=== PATIENT | female | born 1995 | race Caucasian/White ===

== ENCOUNTER 2017-05-23 08:39 | Emergency (ER) | payer BC ==
[2017-05-23] MEDS ORDERED: ACETAMINOPHEN 325 MG TABLET PO ONE (09:00)
[2017-05-23] MEDS ORDERED: fentaNYL PF 100 MCG/2 ML VIAL ONE (09:20)
[2017-05-23] MEDS: fentaNYL PF 100 MCG/2 ML VIAL IV PRN ×3 (09:22→10:10)
[2017-05-23] MEDS ORDERED: ONDANSETRON PF 4 MG/2 ML VIAL. ONE (09:28)
[2017-05-23] MEDS ORDERED: IV NORMAL SALINE 1,000ML 1,000 ML ONE (09:29)
[2017-05-23] MEDS ORDERED: IV NORMAL SALINE 50ML 50 ML ONE (09:32)
[2017-05-23] MEDS ORDERED: cefTRIAXone SODIUM 1 GM VIAL IV ONE (09:32)
[2017-05-23 09:50] LABS: BASO % 0 % (0-3); EOS % 0 % (0-3); HEMATOCRIT 35.2 % (36.0-47.0); HEMOGLOBIN 11.3 g/dL (12.0-15.5); LYMPH % 7 % (24-48); MEAN CORPUSCULAR HEMOGLOBIN 26 pg (25-35); MEAN CORPUSCULAR HGB CONC 32 g/dL (31-37); MEAN CORPUSCULAR VOLUME 81 fL (79-100); MONO # 0.6 x10^3/uL (0.0-1.1); MONO % 4 % (0-9); NEUT # 13.8 x10^3uL (1.8-7.7); NEUT % 89 % (31-73); PLATELET COUNT 278 x10^3/uL (140-400); RED BLOOD COUNT 4.38 x10^6/uL (3.50-5.40); WHITE BLOOD COUNT 15.4 x10^3/uL (4.0-11.0)
[2017-05-23 09:54] LABS: ALBUMIN 2.8 g/dL (3.4-5.0); ALBUMIN/GLOBULIN RATIO 0.7 (1.0-1.7); CREATININE 0.8 mg/dL (0.6-1.0); GFR 89.7; POTASSIUM 3.4 mmol/L (3.5-5.1); TOTAL BILIRUBIN 0.5 mg/dL (0.2-1.0); TOTAL PROTEIN 6.6 g/dL (6.4-8.2)
[2017-05-23 10:50] LABS: % BANDS 8 % (0-9); % LYMPHS 8 % (24-48); % MONOS 7 % (0-10); % SEGS 77 % (35-66)
--- NOTE | 2017-05-23 10:50 | ED.ADGEN ---
Adult General Chief Complaint Chief Complaint Abdominal pain, vaginal bleeding HPI HPI Patient is a 21-year-old female presents with vaginal bleeding and lower pelvic pain upper abdominal and flank pain. Pain is intermittent and described as moderate to severe, sharp cramping and intermittent. Patient denies urinary frequency urgency or dysuria. No history kidney stones. No fever chills or sweats. Last menstrual period was approximately 2 months ago. Patient currently on oral contraceptive pill. No prior abdominal surgeries. No other acute symptoms or complaints. Review of Systems Review of Systems ROS as per HPI. Current Medications Current Medications Current Medications Medications (Trade) Dose Ordered Sig/Nilson Start Time Stop Time Status Last Admin Dose Admin Acetaminophen (Tylenol) 650 mg 1X ONCE 05/23/17 09:00 05/23/17 12:32 DC Ceftriaxone Sodium 1 gm/ Sodium Chloride 50 ml @ 100 mls/hr 1X ONCE 05/23/17 09:30 05/23/17 12:32 DC 05/23/17 09:35 100 MLS/HR Ceftriaxone Sodium (Rocephin) 1 gm STK-MED ONCE 05/23/17 09:32 05/23/17 09:33 DC Fentanyl Citrate (Fentanyl 2ml Vial) 50 mcg PRN Q15MIN PRN 05/23/17 09:20 05/23/17 15:27 DC 05/23/17 10:10 25 MCG Ondansetron HCl (Zofran) 4 mg 1X ONCE 05/23/17 13:00 05/23/17 13:17 DC Oxytocin (Pitocin) 30 unit 1X ONCE 05/23/17 12:45 05/23/17 12:46 DC 05/23/17 11:30 30 UNIT Sodium Chloride 1,000 ml @ 1,000 mls/hr 1X ONCE 05/23/17 12:30 05/23/17 13:29 DC 05/23/17 09:30 1,000 MLS/HR Allergies Allergies Allergies Coded Allergies Type Severity Reaction Last Updated Verified vancomycin Allergy Unknown 05/23/17 Yes Physical Exam Physical Exam Constitutional: Well developed, well nourished, moderate distress secondary to pain.[] HENT: Normocephalic, atraumatic, bilateral external ears normal, oropharynx moist, no oral exudates, nose normal. [] Eyes: PERRLA, EOMI, conjunctiva normal, no discharge. [] Neck: Normal range of motion, no tenderness, supple, no stridor. [] Cardiovascular:Heart rate regular rhythm, no murmur [] Lungs & Thorax: Bilateral breath sounds clear to auscultation [] Abdomen: Soft, distended, gravid fundal height above umbilicus [] Pelvic: Uterus dilated, fetus in vertex position and with contractions. Skin: Warm, dry[] Back: No tenderness, [] Extremities: No tenderness, no cyanosis, no clubbing, ROM intact, no edema. [] Neurologic: Alert and oriented X 3, normal motor function, normal sensory function, no focal deficits noted. [] Psychologic: Affect anxious. [] Current Patient Data Vital Signs Vital Signs Date Time Temp Pulse Resp B/P (MAP) Pulse Ox O2 Delivery O2 Flow Rate FiO2 05/23/17 11:35 95 16 156/80 (105) 97 Room Air 05/23/17 11:20 2.0 05/23/17 08:45 98.0 Vital signs per nursing records Lab Results Laboratory Tests Test 05/23/17 09:20 White Blood Count 15.4 x10^3/uL (4.0-11.0) H Red Blood Count 4.38 x10^6/uL (3.50-5.40) Hemoglobin 11.3 g/dL (12.0-15.5) L Hematocrit 35.2 % (36.0-47.0) L Mean Corpuscular Volume 81 fL (79-100) Mean Corpuscular Hemoglobin 26 pg (25-35) Mean Corpuscular Hemoglobin Concent 32 g/dL (31-37) Red Cell Distribution Width 15.0 % (11.5-14.5) H Platelet Count 278 x10^3/uL (140-400) Neutrophils (%) (Auto) 89 % (31-73) H Lymphocytes (%) (Auto) 7 % (24-48) L Monocytes (%) (Auto) 4 % (0-9) Eosinophils (%) (Auto) 0 % (0-3) Basophils (%) (Auto) 0 % (0-3) Neutrophils # (Auto) 13.8 x10^3uL (1.8-7.7) H Lymphocytes # (Auto) 1.0 x10^3/uL (1.0-4.8) Monocytes # (Auto) 0.6 x10^3/uL (0.0-1.1) Eosinophils # (Auto) 0.0 x10^3/uL (0.0-0.7) Basophils # (Auto) 0.0 x10^3/uL (0.0-0.2) Segmented Neutrophils % 77 % (35-66) H Band Neutrophils % 8 % (0-9) Lymphocytes % 8 % (24-48) L Monocytes % 7 % (0-10) Platelet Estimate Adequate (ADEQUATE) Large Platelets Occ Polychromasia Slight Anisocytosis Slight Sodium Level 139 mmol/L (136-145) Potassium Level 3.4 mmol/L (3.5-5.1) L Chloride Level 105 mmol/L (98-107) Carbon Dioxide Level 23 mmol/L (21-32) Anion Gap 11 (6-14) Blood Urea Nitrogen 6 mg/dL (7-20) L Creatinine 0.8 mg/dL (0.6-1.0) Estimated GFR (Cockcroft-Gault) 89.7 BUN/Creatinine Ratio 8 (6-20) Glucose Level 98 mg/dL (70-99) Calcium Level 9.0 mg/dL (8.5-10.1) Total Bilirubin 0.5 mg/dL (0.2-1.0) Aspartate Amino Transferase (AST) 14 U/L (15-37) L Alanine Aminotransferase (ALT) 12 U/L (14-59) L Alkaline Phosphatase 191 U/L (46-116) H Total Protein 6.6 g/dL (6.4-8.2) Albumin 2.8 g/dL (3.4-5.0) L Albumin/Globulin Ratio 0.7 (1.0-1.7) L EKG EKG [] Radiology/Procedures Radiology/Procedures [A hand was inserted elevating the vertex and then the head delivered with assistance of fundal pressure 75 mcg of fentanyl was given for pain control . The nares and oropharynx were bulb suctioned, and the remainder of the was delivered out of the maternal abdomen The cord was then clamped and cut and baby was handed to the hay rake operator for initial new born evaluation. The cord and placenta were then delivered manually with gentle traction. The vagina was then inspected and a lower vaginal laceration was noted. No active bleeding was noted. The delivery was assisted by biometrics consultant with A [facility] [employer]. I was present throughout the delivery process with the exception a brief moment to evaluated a new ED patient . ] Course & Med Decision Making Course & Med Decision Making Pertinent Labs and Imaging studies reviewed. (See chart for details) [Patient in active labor with in the ED. Fetus in vertex position with uncomplicated delivery an delivery of placenta. Rocephin and fentanyl during labor. Drs. Muñoz and Matt were present for assistance of new born evaluation. Patient and [facility] to [facility]. Dr. Ndiaye accepts patient to the L&D department. Dr. Traylor accepts patient to the nursery. Critical care time: 60 minutes.] Final Impression Final Impression [1. labor and delivery ] Problems: Dragon Disclaimer Dragon Disclaimer This electronic medical record was generated, in whole or in part, using a voice recognition dictation system. DILIP SMYTH DO May 23, 2017 10:50
[2017-05-23 10:51] LABS: ANISOCYTOSIS SLIGHT; PLT ESTIMATE ADEQUATE (ADEQUATE); POLYCHROMASIA SLIGHT
[2017-05-23] MEDS ORDERED: OXYTOCIN 10 UNIT/ML VIAL. MC ONE (11:15)
[2017-05-23 11:35] VITALS: BP 156/80
[2017-05-23] MEDS ORDERED: IV NORMAL SALINE 1,000ML 1,000 ML IV ONE (12:30)
[2017-05-23] MEDS ORDERED: OXYTOCIN 10 UNIT/ML VIAL. IV ONE (12:45)
[2017-05-23] MEDS ORDERED: ONDANSETRON PF 4 MG/2 ML VIAL. IV ONE (13:00)
== END 2017-05-23 11:45 | disposition short-term general hospital (02) ==
LOC: ER 08:39
DX: O80 Encounter for full-term uncomplicated delivery (principal); Z3A.00 Weeks of gestation of pregnancy not specified; Z37.0 Single live birth; Z88.1 Allergy status to other antibiotic agents
CPT/HCPCS: 36415; 59409; 80053; 85007; 85025; 86900; 86901; 96365; 96375; 99291; J0696; J2590; J3010; 99285-25; J7030